=== PATIENT | female | born 1995 | race Caucasian/White ===

== ENCOUNTER 2018-09-13 16:46 | Emergency (ER) | payer OTHER ==
[2018-09-13] MEDS: NS 1,000 ML IV (17:39)
[2018-09-13] MEDS: ONDANSETRON 4MG/2ML VIAL (J2405) IV (17:39)
[2018-09-13 17:55] LABS: HEMATOCRIT 41.2 % (36.0-47.0); HEMOGLOBIN 14.1 g/dl (12.0-15.5); MEAN CORPUSCULAR HEMOGLOBIN 31.3 pg (27.0-33.0); MEAN CORPUSCULAR HGB CONC 34.2 g/dl (32.0-36.5); MEAN CORPUSCULAR VOLUME 91.6 fl (80.0-96.0); PLATELET COUNT, AUTOMATED 187 10^3/uL (150-450); RED CELL DISTRIBUTION WIDTH 11.9 % (11.5-14.5); WHITE BLOOD COUNT 6.3 10^3/uL (4.0-10.0)
[2018-09-13 18:09] LABS: ANION GAP 9 MEQ/L (8-16); BLOOD UREA NITROGEN 14 MG/DL (7-18); CALCIUM LEVEL 8.3 MG/DL (8.5-10.1); CARBON DIOXIDE LEVEL 24 MEQ/L (21-32); CHLORIDE LEVEL 107 MEQ/L (98-107); CREATININE FOR GFR 0.69 MG/DL (0.55-1.30); GLOMERULAR FILTRATION RATE > 60.0 (>60); GLUCOSE, FASTING 80 MG/DL (70-100); POTASSIUM SERUM 3.8 MEQ/L (3.5-5.1); SODIUM LEVEL 140 MEQ/L (136-145)
[2018-09-13 18:20] LABS: INFLUENZA A AMPLIFICATION NEGATIVE (NEGATIVE); INFLUENZA B AMPLIFICATION NEGATIVE (NEGATIVE)
== END 2018-09-13 18:42 | disposition home or self-care (01) ==
LOC: M ED 16:46
DX: J06.9 Acute upper respiratory infection, unspecified (principal); F12.10 Cannabis abuse, uncomplicated; Z88.8 Allergy status to other drugs, medicaments and biological substances
CPT/HCPCS: J2405

== ENCOUNTER → 2018-09-13 | Outpatient (REF) | payer OTHER | LOC: M SFHCLERA 18:56 | PROVIDERS: ATTEND Nurse Practitioner Family | DX: J02.9 Acute pharyngitis, unspecified (principal) ==

== ENCOUNTER → 2019-02-18 | Outpatient (REF) ==
[2019-02-18 13:45] LABS: ALBUMIN 3.3 GM/DL (3.2-5.2); ALT/SGPT 53 U/L (12-78); BILIRUBIN,TOTAL 0.8 MG/DL (0.2-1.0); BLOOD UREA NITROGEN 6 MG/DL (7-18); CALCIUM LEVEL 8.1 MG/DL (8.5-10.1); CARBON DIOXIDE LEVEL 26 MEQ/L (21-32); CHLORIDE LEVEL 103 MEQ/L (98-107); CREATININE FOR GFR 0.66 MG/DL (0.55-1.30); GLOMERULAR FILTRATION RATE > 60.0 (>60); GLUCOSE, FASTING 81 MG/DL (70-100); MAGNESIUM LEVEL 2.1 MG/DL (1.8-2.4); PHOSPHORUS LEVEL 2.5 MG/DL (2.5-4.9); POTASSIUM SERUM 3.2 MEQ/L (3.5-5.1); SODIUM LEVEL 137 MEQ/L (136-145); TOTAL PROTEIN 6.3 GM/DL (6.4-8.2)
== END ==
LOC: M LAB REF 07:20
DX: Z00.00 Encounter for general adult medical examination without abnormal findings (principal)

== ENCOUNTER 2019-03-30 19:43 | Observation (INO) | payer OTHER ==
[~2019-03-30] VITALS: Ht 157.5 cm; Wt 46.2 kg
[2019-03-30] MEDS ORDERED: DOCUSATE SODIUM 100 MG CAP PO SCH (21:00)
[2019-03-30 21:05] VITALS: BP 101/56
[2019-03-30] MEDS ORDERED: ACET-683 PO (21:32)
[2019-03-30] MEDS ORDERED: ATIV1TAB7 PO (21:32)
[2019-03-30] MEDS ORDERED: ZOLO25TA PO (21:32)
[2019-03-30] MEDS ORDERED: PATIENT COMMENTS (21:32)
[2019-03-30] MEDS ORDERED: TIZA4CAP6 PO (21:32)
[2019-03-30] MEDS ORDERED: MOM 30ML SUSPENSION UDC PO PRN (21:45)
[2019-03-30] MEDS ORDERED: METOCLOPRAMIDE INJ 10MG/2ML VIAL (J2765) IV PRN (21:45)
[2019-03-30] MEDS ORDERED: ACETAMINOPHEN 500 MG TAB PO PRN (21:45)
[2019-03-30] MEDS ORDERED: PROMETHAZINE 25 MG TAB PO PRN (21:45)
[2019-03-30] MEDS ORDERED: ONDANSETRON 4MG/2ML VIAL (J2405) IV PRN (21:45)
[2019-03-30] MEDS ORDERED: MAALOX 30 ML SUSP *UDC PO PRN (21:45)
[2019-03-30] MEDS ORDERED: ACETAMINOPHEN TAB 650MG DOSE (2X325MG) PO PRN (21:45)
[2019-03-30] MEDS ORDERED: LORazepam 1 MG TAB PO PRN (21:45)
--- NOTE | 2019-03-30 22:47 | HPEPDOC ---
General Date of Admission Mar 30, 2019 at 21:01 Date of Service: Mar 30, 2019 Attending Physician: NELLY THORNE DO Chief Complaint The patient is a 23-year-old female admitted with a reason for visit of Vomiting. Source: Patient, Old records History of Present Illness 23 yo female transferred from [place] because of cyclic vomiting that started last night (8-10 times) and diarrhea/abdomen pain and vomiting this AM. no fever. States this has occurred in past and resolves with IVF/medications. States usually occurs from stressful situations and came from family BBQ today. She states also occurs with menstrual cycle (menses normal and started yesterday). States it is NOT similar to her history of ulcerative colitis. At [facility], she was hypotensive and treated with 2 liter IVF, zantac, zofran, phenergan with improvement. Currently she states she is hungry, minimal N,V and no abdomen pain, no dysuria, no fever. Patient states she uses marijuana to help with anxiety but that the cyclical vomiting is not related to her THC use. Home Medications Scheduled Lorazepam (Ativan) 1 Mg Tablet, 1 MG PO DAILY, (Reported) HAS NOT TAKEN TODAY Sertraline Hcl (Zoloft) 25 Mg Tablet, 25 MG PO DAILY, (Reported) HAS NOT TAKEN TODAY Tizanidine HCl (Tizanidine HCl) 4 Mg Capsule, 4 MG PO DAILY, (Reported) HAS NOT TAKEN TODAY Scheduled PRN Acetaminophen (Acetaminophen) 500 Mg Tablet, 500 MG PO BID PRN for PAIN, (Reported) HAS NOT TAKEN TODAY Miscellaneous Medications [Patient Comments] , (Reported) UNABLE TO VERIFY ANY PRESCRIPTION MEDICATION. WILL CALL PHARMACY TOMORROW MORNING. PATIENT STATES SHE HASN'T TAKEN ANY MEDICATIONS TODAY Allergies Coded Allergies: aripiprazole (Verified Adverse Reaction, Intermediate, PAIN ALL OVER, 03/30/19) Past Medical History Medical History hypokalemia, cyclic vomiting, schizophrenia, depression, bipolar disorder,anxiey, ovarian cyst, ulcerative colitis, gastritis Past surgical hx: cholecystectomy Social history : denies EtOH or tobacco use. +THC Family Hx: parents healthy A-FIB/CHADSVASC A-FIB History Current/History of A-Fib/PAF?: No Current PO Anticoag Therapy: No Review of Systems Other systems 10 comprehensive systems reviewed and negative except as per HPI Physical Examination General Exam: Positive: Alert, Cooperative, No Acute Distress Eye Exam: Positive: PERRLA, Conjunctiva & lids normal, EOMI ENT Exam: Positive: Atraumatic, Mucous membr. moist/pink, Pharynx Normal Neck Exam: Positive: Supple, +2 carotid pulse wo bruit Chest Exam: Positive: Clear to auscultation, Normal air movement; Negative: Rales, Rhonchi, Wheezing Heart Exam: Positive: Rate Normal, Regular Rhythm, Normal S1, Normal S2 Abdomen Exam: Positive: Normal bowel sounds, Soft (NTND) Extremity Exam: Positive: Normal pulses; Negative: Clubbing, Cyanosis, Edema, Tenderness, Swelling Skin Exam: Positive: Nl turgor and temperature Neuro Exam: Positive: Normal Speech, Strength at 5/5 X4 ext, Normal Tone, Sensation Intact Psych Exam: Positive: Mental status NL, Mood NL, Oriented x 3 Other physical findings Labs from [facility] reviewed - elevated WBC 13.9, normal H/H, K 3.4, BUN14, Creat 0.7; elevated lactic acid Vital Signs Vitals pending admission 102/72 - 72 - 16; afebrile Assessment/Plan Cyclical nausea/vomiting - improved received 2 liter IVF at [facility]. saline lock. continue prn zofran,reglan and phenergan. po pepcid BID advance diet. consider sending home with phenergan or zofran prn Anticipate possible discharge in AM Elevated WBC - probable reactive - received rocephin at [facility] but no signs of infection Urine pending repeat CBC,CMP and lactate pending Elevated Lactic acid at [facility] - repeat lab pending Plan / VTE VTE Prophylaxis Ordered?: Yes NELLY THORNE DO Mar 30, 2019 21:33
[2019-03-30 22:54] LABS: ALBUMIN 3.4 GM/DL (3.2-5.2); ALT/SGPT 21 U/L (12-78); BILIRUBIN,TOTAL 0.3 MG/DL (0.2-1.0); BLOOD UREA NITROGEN 14 MG/DL (7-18); CALCIUM LEVEL 7.7 MG/DL (8.5-10.1); CARBON DIOXIDE LEVEL 23 MEQ/L (21-32); CHLORIDE LEVEL 111 MEQ/L (98-107); CREATININE FOR GFR 0.59 MG/DL (0.55-1.30); GLOMERULAR FILTRATION RATE > 60.0 (>60); GLUCOSE, FASTING 92 MG/DL (70-100); POTASSIUM SERUM 3.6 MEQ/L (3.5-5.1); SODIUM LEVEL 143 MEQ/L (136-145); TOTAL PROTEIN 6.2 GM/DL (6.4-8.2)
--- NOTE | 2019-03-31 00:09 | DS.PDOC ---
Discharge Summary General Date of Admission Mar 30, 2019 at 21:01 Date of Discharge 03/31/19 0006 Attending Physician: NELLY THORNE DO Discharge Summary PROCEDURES PERFORMED DURING STAY: [None]. ADMITTING DIAGNOSES: cyclical N/V Elevated lactate level DISCHARGE DIAGNOSES: cyclical vomiting due to stress reaction COMPLICATIONS/CHIEF COMPLAINT: Vomiting. HISTORY OF PRESENT ILLNESS: 23 yo patient transferred from [facility] for N/V. see H&P for details HOSPITAL COURSE: repeat labs done, patient able to tolerate regular diet and left AMA prior to labs being resulted or my stopping by to talk with her DISCHARGE MEDICATIONS: Please see below. ALLERGIES: Please see below. PHYSICAL EXAMINATION ON DISCHARGE: VITAL SIGNS: Please see below. See physical exam on admission ACTIVITY: as tolerated DIET: regular DISPOSITION: AMA (did not want to wait for lab results or repeat evaluation) DISCHARGE INSTRUCTIONS: 1. left AMA prior to instructions being given DISCHARGE CONDITION:stable /improved TIME SPENT ON DISCHARGE: 10 minutes. Vital Signs/I&Os Vital Signs Date Time Temp Pulse Resp B/P (MAP) Pulse Ox O2 Delivery O2 Flow Rate FiO2 03/30/19 21:05 98.5 63 15 101/56 (71) 97 I&O- Last 24 Hours up to 6 AM 03/31/19 06:00 Intake Total 0 ml Output Total 175 ml Balance -175 ml Laboratory Data Labs 24H Laboratory Tests 2 03/30/19 22:20: Anion Gap 9, Glomerular Filtration Rate > 60.0, Lactic Acid Level 0.8, Blood Urea Nitrogen 14, Creatinine 0.59, Sodium Level 143, Potassium Level 3.6, Chloride Level 111H, Carbon Dioxide Level 23, Calcium Level 7.7L, Aspartate Amino Transf (AST/SGOT) 12, Alanine Aminotransferase (ALT/SGPT) 21, Alkaline Phosphatase 15L, Total Bilirubin 0.3, Total Protein 6.2L, Albumin 3.4, Albumin/Globulin Ratio 1.21 CBC/BMP Laboratory Tests 03/30/19 22:20 Calcium Level 7.7 L, Aspartate Amino Transf (AST/SGOT) 12, Alanine Aminotransferase (ALT/SGPT) 21, Alkaline Phosphatase 15 L, Total Bilirubin 0.3, Total Protein 6.2 L, Albumin 3.4 Discharge Medications Scheduled Lorazepam (Ativan) 1 Mg Tablet, 1 MG PO DAILY, (Reported) HAS NOT TAKEN TODAY Sertraline Hcl (Zoloft) 25 Mg Tablet, 25 MG PO DAILY, (Reported) HAS NOT TAKEN TODAY Tizanidine HCl (Tizanidine HCl) 4 Mg Capsule, 4 MG PO DAILY, (Reported) HAS NOT TAKEN TODAY Scheduled PRN Acetaminophen (Acetaminophen) 500 Mg Tablet, 500 MG PO BID PRN for PAIN, (Reported) HAS NOT TAKEN TODAY Miscellaneous Medications [Patient Comments] , (Reported) UNABLE TO VERIFY ANY PRESCRIPTION MEDICATION. WILL CALL PHARMACY TOMORROW MORNING. PATIENT STATES SHE HASN'T TAKEN ANY MEDICATIONS TODAY Allergies Coded Allergies: aripiprazole (Verified Adverse Reaction, Intermediate, PAIN ALL OVER, 03/30/19) NELLY THORNE DO Mar 31, 2019 00:09
[2019-03-31 02:59] LABS: HEMATOCRIT 35.5 % (36.0-47.0); HEMOGLOBIN 11.6 g/dl (12.0-15.5); MEAN CORPUSCULAR HEMOGLOBIN 31.9 pg (27.0-33.0); MEAN CORPUSCULAR HGB CONC 32.7 g/dl (32.0-36.5); MEAN CORPUSCULAR VOLUME 97.5 fl (80.0-96.0); PLATELET COUNT, AUTOMATED 202 10^3/uL (150-450); RED BLOOD COUNT 3.64 10^6/uL (4.00-5.40); WHITE BLOOD COUNT 10.2 10^3/uL (4.0-10.0)
[2019-03-31] MEDS ORDERED: SERTRALINE HCL 25 MG TABLET PO SCH (09:00)
[2019-03-31] MEDS ORDERED: ENOXAPARIN 40 MG/0.4 ML SYRINGE (J1650) SC SCH (09:00)
[2019-03-31] MEDS ORDERED: FAMOTIDINE 20 MG TAB PO SCH (09:00)
== END 2019-03-31 00:15 | disposition left against medical advice (07) ==
LOC: M MSPAV 21:01 → INTOOBSV 21:01
PROVIDERS: ADMIT Family Medicine; ATTEND Family Medicine
DX: G43.A0 Cyclical vomiting, in migraine, not intractable (principal); K31.89 Other diseases of stomach and duodenum; R11.2 Nausea with vomiting, unspecified; R74.0 Nonspecific elevation of levels of transaminase and lactic acid dehydrogenase [LDH]; D72.829 Elevated white blood cell count, unspecified; R19.7 Diarrhea, unspecified; F12.10 Cannabis abuse, uncomplicated; F20.9 Schizophrenia, unspecified; F32.9 Major depressive disorder, single episode, unspecified; K51.90 Ulcerative colitis, unspecified, without complications; F41.9 Anxiety disorder, unspecified; Z87.42 Personal history of other diseases of the female genital tract; Z88.8 Allergy status to other drugs, medicaments and biological substances; Z79.899 Other long term (current) drug therapy
CPT/HCPCS: 36415; 80053; 83605; 85027; 96374; J2405